=== PATIENT | female | born 1990 | race Caucasian/White ===

== ENCOUNTER 2019-01-27 02:12 | Emergency (ER) | payer OTHER ==
[~2019-01-27] VITALS: Ht 162.6 cm; Wt 73.5 kg
[2019-01-27 02:25] VITALS: Ht 162.6 cm; Wt 73.5 kg
[2019-01-27 04:13] VITALS: BP 107/70
== END 2019-01-27 04:13 | disposition home or self-care (01) ==
LOC: ED 02:12
DX: S02.5XXA Fracture of tooth (traumatic), initial encounter for closed fracture (principal); S60.222A Contusion of left hand, initial encounter; S80.212A Abrasion, left knee, initial encounter; S09.8XXA Other specified injuries of head, initial encounter; Z88.1 Allergy status to other antibiotic agents; Y04.0XXA Assault by unarmed brawl or fight, initial encounter; Y93.89 Activity, other specified; Y92.89 Other specified places as the place of occurrence of the external cause; Y99.8 Other external cause status